=== PATIENT | female | born 1950 | race Caucasian/White ===

== ENCOUNTER 2018-05-31 11:21 | Emergency (ER) | payer OTHER ==
[~2018-05-31 11:21] MED LIST: CHOL200059 PO; DULO30CA2 PO; GABA-531 PO; HYDR-2132 PO; MELO-106 PO; METF-446 PO; PREG75 PO; TRAM50TA4 PO
[2018-05-31] MEDS ORDERED: ORPHENADRINE CITRATE 30 MG/ML ML ONE (12:27)
== END 2018-05-31 13:13 | disposition home or self-care (01) ==
LOC: EDH 11:21
DX: S13.8XXA Sprain of joints and ligaments of other parts of neck, initial encounter (principal); S40.022A Contusion of left upper arm, initial encounter; M54.5 Low back pain; E11.9 Type 2 diabetes mellitus without complications; M19.90 Unspecified osteoarthritis, unspecified site; M79.7 Fibromyalgia; Z91.013 Allergy to seafood; Z91.041 Radiographic dye allergy status; V49.49XA Driver injured in collision with other motor vehicles in traffic accident, initial encounter; Y93.89 Activity, other specified; Y92.89 Other specified places as the place of occurrence of the external cause; Y99.8 Other external cause status
CPT/HCPCS: 71045; 72040; 72100; 96372; 99283; J2360

== ENCOUNTER → 2018-06-13 | Outpatient (CLI) | payer OTHER | END | disposition home or self-care (01) | LOC: RAH 15:41 | PROVIDERS: ATTEND Orthopaedic Surgery | DX: M16.11 Unilateral primary osteoarthritis, right hip (principal); R60.9 Edema, unspecified | CPT/HCPCS: 73721 ==

== ENCOUNTER → 2021-03-12 | Outpatient (CLI) | payer MEDICARE | END | disposition home or self-care (01) | LOC: RAH 09:22 | PROVIDERS: ATTEND Physician Assistant | DX: M51.16 Intervertebral disc disorders with radiculopathy, lumbar region (principal); M48.061 Spinal stenosis, lumbar region without neurogenic claudication | CPT/HCPCS: 72148 ==